=== PATIENT | female | born 1935 | race Caucasian/White ===

== ENCOUNTER → 2017-01-05 | Outpatient (CLI) | payer OTHER, MEDICARE | LOC: FIMAGING 13:38 | DX: Z12.31 Encounter for screening mammogram for malignant neoplasm of breast (principal); Z80.3 Family history of malignant neoplasm of breast | CPT/HCPCS: G0202 ==

== ENCOUNTER → 2017-01-15 | Outpatient (CLI) | payer OTHER, MEDICARE | LOC: FIMAGING 10:17 | PROVIDERS: ATTEND Obstetrics & Gynecology | DX: Z12.39 Encounter for other screening for malignant neoplasm of breast (principal); R92.0 Mammographic microcalcification found on diagnostic imaging of breast | CPT/HCPCS: G0206 ==

== ENCOUNTER → 2017-01-23 | Day surgery (SDC) | payer OTHER, MEDICARE ==
[~2017-01-23] MED LIST: BUPIVACAINE 0.5% 10 ML SDV ONE; LIDO/EPI 1% **Not for Epidural 20 ML MDV ONE; LIDOCAINE 1% 300 MG/30 ML SDV ONE; THROMBIN (BOVINE) 5,000 UNIT VIAL TP ONE
== END | disposition home or self-care (01) ==
LOC: FIMAGING 07:15
PROVIDERS: ATTEND Obstetrics & Gynecology
PROC: 0HBU3ZX Excision of Left Breast, Percutaneous Approach, Diagnostic (ICD-10-PCS; principal; 2017-01-23)
DX: N60.12 Diffuse cystic mastopathy of left breast (principal)
CPT/HCPCS: G0206

== ENCOUNTER → 2017-08-22 | Outpatient (CLI) | payer OTHER, MEDICARE | LOC: FIMAGING 11:31 | PROVIDERS: ATTEND Internal Medicine | DX: R92.8 Other abnormal and inconclusive findings on diagnostic imaging of breast (principal) | CPT/HCPCS: G0206 ==

== ENCOUNTER → 2018-02-05 | Outpatient (CLI) | payer OTHER, MEDICARE | LOC: FIMAGING 11:00 | PROVIDERS: ATTEND Internal Medicine | DX: Z12.31 Encounter for screening mammogram for malignant neoplasm of breast (principal); Z80.3 Family history of malignant neoplasm of breast ==

== ENCOUNTER → 2018-10-15 | Outpatient (CLI) | payer OTHER, MEDICARE | LOC: FIMAGING 11:01 | PROVIDERS: ATTEND Internal Medicine | DX: M85.89 Other specified disorders of bone density and structure, multiple sites (principal) ==